=== PATIENT | male | born 1990 | race African-American/Black ===

== ENCOUNTER 2017-08-01 12:57 | Emergency (ER) | payer SELFPAY ==
[~2017-08-01] VITALS: Ht 177.8 cm; Wt 70.0 kg
[~2017-08-01 12:57] MED LIST: DOXY100T PO
[2017-08-01 12:59] VITALS: BP 137/77; PULSE 73; RESP 18; TEMP 98.6; O2SAT 100
--- NOTE | 2017-08-01 13:29 | PD ---
HPI Chief Complaint: Pain: Acute or Chronic Time Seen by Provider: 13:14 Travel History International Travel<30 days: No Contact w/Intl Traveler<30days: No Traveled to known affect area: No History of Present Illness HPI This is a 27-year-old male who presents to the emergency department with intermittent chest discomfort that's mostly on the left side described as a sharp pain associated with burping and gas, moderate severity, worse with deep breaths. He says this been going on for a week. He says today the pains been constant. He can't tell if it's associated with eating. He denies any leg swelling or recent long trips. He has no family history of early heart disease. He is otherwise healthy. He does smoke 2-3 cigarettes per day. [facility] Social History Alcohol Use: No Tobacco Use: No Allergies-Medications (Allergen,Severity, Reaction): Coded Allergies: No Known Allergies (Unverified Adverse Reaction, Unknown, 08/01/17) Reported Meds & Prescriptions Reported Meds & Active Scripts Active Doxycycline Hyclate 100 Mg Tab 100 Mg PO BID Review of Systems Except as stated in HPI: all other systems reviewed are Neg Physical Exam Narrative GENERAL:Well appearing, no acute distress SKIN: Focused skin assessment warm and dry. HEAD: Atraumatic. Normocephalic. EYES: Pupils equal and round. No injection or drainage. ENT: Moist mucous membranes NECK: Trachea midline. CARDIOVASCULAR: Regular rate and rhythm. No murmur appreciated. RESPIRATORY: Clear to auscultation. Breath sounds equal bilaterally. GASTROINTESTINAL: Abdomen soft, non-tender, nondistended. MUSCULOSKELETAL: No obvious deformities. NEUROLOGICAL: Awake and alert. No obvious cranial nerve deficits. Moving all extremities. PSYCHIATRIC: Appropriate mood and affect; insight and judgment normal. Data Data Last Documented VS Vital Signs Date Time Temp Pulse Resp B/P (MAP) Pulse Ox O2 Delivery O2 Flow Rate FiO2 08/01/17 12:59 98.6 73 18 137/77 (97) 100 Orders Orders Chest, Pa & Lat (08/01/17 ) Electrocardiogram (08/01/17 ) Qlrck-Yhwiny-Ldjdgv-Pb Liq ( Liq (08/01/17 13:30) Lidocaine 2% Viscous (Xylocaine 2% Visco (08/01/17 13:30) Al-Mag Hy-Si 40-40-4 Mg/Ml Liq (Mag-Al P (08/01/17 13:30) MDM Medical Decision Making Medical Screen Exam Complete: Yes Emergency Medical Condition: Yes Differential Diagnosis GERD, gastritis, peptic ulcer disease, acute coronary syndrome, pneumothorax, pulmonary embolism Narrative Course This is a 27-year-old male who presents to the emergency department with atypical chest discomfort. He has multiple GI symptoms with belching, and is tender to palpation over the epigastrium. I suspect he has GERD which is causing his symptoms. EKG and chest x-ray will be obtained. His only risk factor for coronary artery disease is smoking and he is quite young so I don't think any labs are necessary. He is PERC negative so I don't think he requires workup for pulmonary embolism. Patient was given a GI cocktail. EKG and chest x-ray will be obtained. If reassuring patient can be discharged on Zantac. Snehal Zafar MD Aug 01, 2017 13:29
[2017-08-01] MEDS ORDERED: ATROPINE/SCOPOLAM/HYOSCYAM/PB ELIXIR 10 ML CUP PO ONE (13:30)
[2017-08-01] MEDS ORDERED: LIDOCAINE VISCOUS 2% SOLN 15 ML UDC SWISH-SWAL ONE (13:30)
[2017-08-01] MEDS ORDERED: ALUMINUM/MAGNESIUM/SIMETH 30 ML CUP PO ONE (13:30)
--- NOTE | 2017-08-01 14:11 | RADRPT ---
EXAM DATE/TIME: 08/01/2017 13:49 [place] COMPARISON: No previous studies available for comparison. INDICATIONS : Anterior chest pain for one week, pain is in the mid to lower left side of the chest MEDICAL HISTORY : None. SURGICAL HISTORY : None. ENCOUNTER: Initial ACUITY: 1 week PAIN SCORE: 7/10 LOCATION: Left chest FINDINGS: PA and lateral views of the chest demonstrate a normal-sized cardiac silhouette. There is no effusion , consolidation, or pneumothorax. The bones and soft tissues demonstrate no acute abnormality. CONCLUSION: No acute cardiopulmonary abnormality is identified. Pedro Pate MD on August 01, 2017 at 14:07 Board Certified Radiologist. This report was verified electronically.
[2017-08-01 14:28] LABS: AUTOMATED NEUTROPHIL # 1.6 TH/MM3 (1.8-7.7); BASOPHIL % 0.7 % (0.0-2.0); EOSINOPHIL # 0.1 TH/MM3 (0-0.4); HEMATOCRIT 45.1 % (39.0-51.0); HEMO FLAGS DIFF FINAL; LYMPH % 41.8 % (9.0-44.0); LYMPHOCYTE # 1.4 TH/MM3 (1.0-4.8); MEAN CELL VOLUME 76.7 FL (80.0-100.0); MEAN CORPUSCULAR HEMOGLOBIN 24.4 PG (27.0-34.0); MEAN CORPUSCULAR HGB CONC 31.8 % (32.0-36.0); NEUT % 48.5 % (16.0-70.0); PLATELET COUNT 173 TH/MM3 (150-450); RED BLOOD COUNT 5.88 MIL/MM3 (4.50-5.90); RED CELL DISTRIBUTION WIDTH 15.1 % (11.6-17.2); WHITE BLOOD COUNT 3.3 TH/MM3 (4.0-11.0)
[2017-08-01 14:58] LABS: ALT (GPT) 17 U/L (12-78); ANION GAP 7 MEQ/L (5-15); AST (GOT) 16 U/L (15-37); BICARBONATE 28.5 MEQ/L (21.0-32.0); BLOOD UREA NITROGEN 15 MG/DL (7-18); CHLORIDE 104 MEQ/L (98-107); GLOMERULAR FILTRATION RATE 111 ML/MIN (>89); POTASSIUM 3.8 MEQ/L (3.5-5.1); SODIUM (NA) 139 MEQ/L (136-145)
[2017-08-01 15:02] LABS: ALKALINE PHOSPHATASE 68 U/L (45-117); TOTAL BILIRUBIN ADULT 0.5 MG/DL (0.2-1.0)
[2017-08-01 15:16] VITALS: BP 120/76; PULSE 60; RESP 14; O2SAT 99
[2017-08-01 15:38] VITALS: TEMP 98.9
--- NOTE | 2017-08-01 15:50 | PD ---
Physical Exam Date Seen by Provider: Aug 01, 2017 Time Seen by Provider: 15:42 Narrative GENERAL: Well-nourished, well-developed male in no acute distress. Afebrile. Ambulatory. Resting comfortably in bed. SKIN: Focused skin assessment warm/dry. HEAD: Normocephalic. EYES: No scleral icterus. No injection or drainage. NECK: Supple, trachea midline. No JVD or lymphadenopathy. CARDIOVASCULAR: Regular rate and rhythm without murmurs, gallops, or rubs. RESPIRATORY: Breath sounds equal bilaterally. No accessory muscle use. GASTROINTESTINAL: Abdomen soft, non-tender, nondistended. Data Data Last Documented VS Vital Signs Date Time Temp Pulse Resp B/P (MAP) Pulse Ox O2 Delivery O2 Flow Rate FiO2 08/01/17 17:00 98.3 52 20 117/73 (88) 100 Room Air Orders Orders Chest, Pa & Lat (08/01/17 ) Electrocardiogram (08/01/17 ) Wltow-Kxakzq-Ltxyip-Pb Liq ( Liq (08/01/17 13:30) Lidocaine 2% Viscous (Xylocaine 2% Visco (08/01/17 13:30) Al-Mag Hy-Si 40-40-4 Mg/Ml Liq (Mag-Al P (08/01/17 13:30) Complete Blood Count With Diff (08/01/17 13:51) Comprehensive Metabolic Panel (08/01/17 13:51) Troponin I (08/01/17 13:51) Ed Discharge Order (08/01/17 17:28) Mandatory Outpatient Referral (08/01/17 17:28) Labs Laboratory Tests Test 08/01/17 14:08 White Blood Count 3.3 TH/MM3 Red Blood Count 5.88 MIL/MM3 Hemoglobin 14.3 GM/DL Hematocrit 45.1 % Mean Corpuscular Volume 76.7 FL Mean Corpuscular Hemoglobin 24.4 PG Mean Corpuscular Hemoglobin Concent 31.8 % Red Cell Distribution Width 15.1 % Platelet Count 173 TH/MM3 Mean Platelet Volume 8.1 FL Neutrophils (%) (Auto) 48.5 % Lymphocytes (%) (Auto) 41.8 % Monocytes (%) (Auto) 7.0 % Eosinophils (%) (Auto) 2.0 % Basophils (%) (Auto) 0.7 % Neutrophils # (Auto) 1.6 TH/MM3 Lymphocytes # (Auto) 1.4 TH/MM3 Monocytes # (Auto) 0.2 TH/MM3 Eosinophils # (Auto) 0.1 TH/MM3 Basophils # (Auto) 0.0 TH/MM3 CBC Comment DIFF FINAL Differential Comment Blood Urea Nitrogen 15 MG/DL Creatinine 0.99 MG/DL Random Glucose 70 MG/DL Total Protein 7.5 GM/DL Albumin 3.9 GM/DL Calcium Level 8.8 MG/DL Alkaline Phosphatase 68 U/L Aspartate Amino Transf (AST/SGOT) 16 U/L Alanine Aminotransferase (ALT/SGPT) 17 U/L Total Bilirubin 0.5 MG/DL Sodium Level 139 MEQ/L Potassium Level 3.8 MEQ/L Chloride Level 104 MEQ/L Carbon Dioxide Level 28.5 MEQ/L Anion Gap 7 MEQ/L Estimat Glomerular Filtration Rate 111 ML/MIN Troponin I LESS THAN 0.02 NG/ML MDM Medical Record Reviewed: Yes Supervised Visit with TAMMY: Yes Narrative Course Patient signed out to me pending labs, EKG, and chest x-ray. In short, this is a 27-year-old male presents to the emergency room for evaluation of left chest pain worse with inspiration that has been ongoing for the past week. Abdomen soft, nontender. Lungs sounds clear and equal bilaterally. Regular rate and rhythm with no obvious murmurs. History and physical exam are consistent with GERD. CBC is remarkable for WBC of 3.3. CMP is completely unremarkable. Troponin less than 0.02. Chest x-ray shows no acute cardiopulmonary disease. EKG shows sinus bradycardia at the rate of 59 beats per minute. There is some diffuse ST segment elevation and nonspecific pattern as well as high-voltage concerning for left ventricular hypertrophy. The V1 and V2 leads show evidence of type III Brugada pattern. I spoke to my attending physician, Dr. Zafar, who recommends consult and cardiology given Brugada pattern reading. I spoke to Dr. Bobby Burden who recommends follow-up as an outpatient. Mandatory outpatient referral placed. Patient was encouraged to follow up next week or return immediately for worsening symptoms. He will be discharged with prescription for Prilosec. He understands and agrees to plan. Diagnosis Primary Impression: GERD (gastroesophageal reflux disease) Qualified Codes: K21.9 - Gastro-esophageal reflux disease without esophagitis Additional Impression: Brugada Pattern on EKG Referrals: Bobby Block MD [employer] Additional Instruction: Rest and drink plenty of fluids. Prilosec as directed, for one month. Follow-up with a primary care physician. Return to the emergency room for worsening symptoms. Scripts Omeprazole (Omeprazole) 40 Mg Cap 40 MG PO DAILY, #30 CAP 0 Refills Prov: Snehal Zafar MD 08/01/17 Disposition: 01 DISCHARGE HOME Condition: Stable Babita Mathur Aug 01, 2017 15:50
[2017-08-01 17:00] VITALS: BP 117/73; PULSE 52; RESP 20; TEMP 98.3; O2SAT 100
[2017-08-01] MEDS ORDERED: OMEP40CA2 PO (17:29)
--- NOTE | 2017-08-02 18:32 | EKG ---
Date Performed: 08/01/2017 Time Performed: 13:42:56 PTAGE: 27 years EKG: SINUS BRADYCARDIA Left ventricular hypertrophy Low voltage NO PREVIOUS TRACING DOCTOR: Tony Garland Interpretating Date/Time 08/02/2017 18:31:16
== END 2017-08-01 17:50 | disposition home or self-care (01) ==
LOC: NEPD 12:57
DX: K21.9 Gastro-esophageal reflux disease without esophagitis (principal); R07.89 Other chest pain; R00.1 Bradycardia, unspecified; I51.7 Cardiomegaly; F17.210 Nicotine dependence, cigarettes, uncomplicated; Z79.899 Other long term (current) drug therapy
CPT/HCPCS: 71020; 80053; 84484; 85025; 93005; 99285